=== PATIENT | male | born 1950 | race Caucasian/White ===

== ENCOUNTER 2021-01-19 09:41 | Outpatient (REF) | payer MEDICARE, SELFPAY ==
[2021-01-19 10:12] LABS: MANUAL DIFF FLAG NO
[2021-01-19 10:17] LABS: Basophils Percent Auto 0.2 % (0-2); Eosinophils Absolute Auto 0.1 X10*3/uL (0.0-0.4); Eosinophils Percent Auto 2.3 % (0-4); Hematocrit 42.9 % (42-52); Hemoglobin 13.8 g/dl (14.0-18.0); Imm Gran Abs Auto 0.01 X10*3/uL (0.00-0.03); Imm Gran Pct Auto 0.2 % (0.0-0.4); Lymphocytes Percent Auto 33.2 % (20-40); Mean Corpuscular HGB Conc 32.2 g/dl (31.0-36.0); Mean Corpuscular Hemoglobin 29.3 pg (27.0-33.0); Mean Corpuscular Volume 91.1 fL (80-98); Mean Platelet Volume 9.2 fL (9.4-12.4); Monocytes Absolute Auto 0.4 X10*3/uL (0.1-1.2); Monocytes Percent Auto 6.8 % (2-11); Neutrophils Absolute Auto 3.5 X10*3/uL (2.0-8.3); Neutrophils Percent Auto 57.3 % (45-73); Platelet Count 216 X10*3/uL (160-400); Red Blood Count 4.71 X10*6/uL (4.60-5.80); Red Cell Distribution Width 13.4 % (11.0-16.0)
[2021-01-19 10:39] LABS: Estimated Average Glucose 94 mg/dL; Hemoglobin A1c % 4.9 %
[2021-01-19 10:42] LABS: Alanine Aminotransferase 21 U/L (0-40); Albumin Level 4.3 g/dL (3.5-5.0); Alkaline Phosphatase 42 U/L (39-117); Anion Gap 9 (12-20); Aspartate Amino Transferase 15 U/L (5-37); Bilirubin Total 0.6 mg/dL (0.0-1.0); Blood Urea Nitrogen 15 mg/dL (9-16); Calcium 9.4 mg/dL (8.4-10.2); Carbon Dioxide 30 mmol/L (22-29); Chloride 107 mmol/L (96-108); Cholesterol 206 mg/dL; Estimated Glomerular Filt Rate > 60; Glucose Random 102 mg/dL (60-115); HDL Cholesterol 47 mg/dL; LDL Cholesterol Calculated 140 mg/dl; Potassium 4.3 mmol/L (3.3-5.1); Sodium 142 mmol/L (135-145); Total Protein 6.7 g/dL (6.5-8.0); Triglycerides 98 mg/dL
[2021-01-19 10:57] LABS: Free T4 (Free Thyroxine) 1.01 ng/dL (0.71-1.85); Prostate Specific Antigen Scr 3.42 ng/mL (<0.05-4.0)
[2021-01-19 11:18] LABS: Folate > 20.0 ng/mL (> or = 4.0); Vitamin B12 453 pg/mL (200-900)
== END 2021-01-19 09:42 | disposition home or self-care (01) ==
LOC: HO.10HDL 09:41
PROVIDERS: Visit Provider Internal Medicine
DX: Z12.5 Encounter for screening for malignant neoplasm of prostate (principal); R73.02 Impaired glucose tolerance (oral); K22.70 Barrett's esophagus without dysplasia; E78.00 Pure hypercholesterolemia, unspecified
CPT/HCPCS: 36415; 80053; 80061; 82607; 82746; 83036; 84153; 84439; 84443; 85025

== ENCOUNTER 2021-02-22 11:05 | Outpatient (REF) | payer MEDICARE, SELFPAY ==
[2021-02-22 13:58] LABS: MANUAL DIFF FLAG NO
[2021-02-22 14:03] LABS: Basophils Percent Auto 0.3 % (0-2); Eosinophils Absolute Auto 0.2 X10*3/uL (0.0-0.4); Eosinophils Percent Auto 2.4 % (0-4); Hemoglobin 14.2 g/dl (14.0-18.0); Imm Gran Abs Auto 0.03 X10*3/uL (0.00-0.03); Imm Gran Pct Auto 0.4 % (0.0-0.4); Lymphocytes Percent Auto 29.8 % (20-40); Mean Corpuscular HGB Conc 32.3 g/dl (31.0-36.0); Mean Corpuscular Hemoglobin 29.6 pg (27.0-33.0); Mean Corpuscular Volume 91.9 fL (80.0-98.0); Mean Platelet Volume 9.5 fL (9.4-12.4); Monocytes Absolute Auto 0.4 X10*3/uL (0.1-1.2); Monocytes Percent Auto 6.4 % (2-11); Neutrophils Percent Auto 60.7 % (45-73); Platelet Count 242 X10*3/uL (160-400); Red Blood Count 4.79 X10*6/uL (4.60-5.80); Red Cell Distribution Width 13.5 % (11.0-16.0); Retic HGB Equivalent 32.5 pg (30.0-35.0); Reticulocyte Percent 1.2 % (0.5-1.8); Reticulocytes Absolute 0.058 X10*6/uL (0.026-0.095); White Blood Count 6.7 X10*3/uL (4.8-10.8)
[2021-02-22 14:12] LABS: Estimated Average Glucose 111 mg/dL; Hemoglobin A1c % 5.5 %
[2021-02-22 14:14] LABS: Cholesterol 224 mg/dL; HDL Cholesterol 50 mg/dL; Iron 84 mcg/dL (45-160); LDL Cholesterol Calculated 146 mg/dl; Percent Iron Saturation 27 % (15-50); Total Iron Binding Capacity 309 mcg/dL (228-428); Triglycerides 141 mg/dL; Unsaturated Iron Binding 225 ug/dL
[2021-02-22 14:36] LABS: Ferritin 104 ng/mL (20-250)
[2021-02-22 14:50] LABS: Folate 19.7 ng/mL (> or = 4.0); Vitamin B12 514 pg/mL (200-900)
== END 2021-02-22 11:06 | disposition home or self-care (01) ==
LOC: HO.10HDL 11:05
PROVIDERS: Absent Provider Internal Medicine; Visit Provider Internal Medicine
DX: R73.02 Impaired glucose tolerance (oral) (principal); D64.9 Anemia, unspecified; E78.00 Pure hypercholesterolemia, unspecified
CPT/HCPCS: 36415; 80061; 82607; 82728; 82746; 83036; 83540; 85025; 85045

== ENCOUNTER 2023-10-28 08:58 | Outpatient (AMB) | payer MEDICARE, SELFPAY ==
[2023-10-28 09:00] VITALS: BP 130/82; PULSE 63; O2SAT 95; BMI 32.2
--- NOTE | 2023-10-28 09:00 | AM.OFFVISMDC ---
Intake Vital Signs 10/28/23 09:00 Height 5 ft 9 in Weight 218 lb BMI 32.2 BP 130/82 Blood Pressure Location Lt brachial Position Sitting Pulse 63 Pulse Source Pulse Oximeter Pulse Oximetry (%) 95 Oxygen Delivery Method Room Air Intake Visit Reasons: SWV Intake Note: Patient is here for an Annual Wellness Visit. Towel Distributor Required: No Allergies bees Allergy (Unknown, Uncoded 10/28/23 09:01) swelling Novocain Allergy (Unknown, Uncoded 10/28/23 09:01) hot flashes HPI SWV HPI Details 72-year-old obese male with Barretts esophagus impaired glucose tolerance hypercholesterolemia and BPH last seen in August 2022. Patient's colonoscopy is up-to-date December 2018 10 years patient has seen gastroenterology September 24 GERD good control with pantoprazole 40 mg once a day patient does have a family history of colon cancer and esophageal cancer patient will be scheduled for colon test in November. Patient is also being followed up by Urology with the elevated PSA prostate MRI advised. Blood work done in May 2023 normal creatinine 0.91 normal electrolytes normal blood sugar normal liver function test normal thyroid no anemia with normal platelet count normal urinalysis PSA is 9.03 patient is here for annual well visit. Dece,2022, had UTI, testicle had swelling 05/2023 US done, bladder, CT scan done--clear [facility]- went to [place] her 10.04- [facility] in [facility] patient has followed up with Dr. Wills and just recently had a biopsy 2 days ago and results are pending. Otherwise no other complaints of nausea vomiting fevers coughs colds no bowel problems. [facility] Medical History (Updated 10/28/23 @ 09:21 by Argelia Zapien MD) Anemia Obesity (BMI 30-39.9) Barretts esophagus Hypercholesterolemia BPH (benign prostatic hyperplasia) GERD (gastroesophageal reflux disease) Surgical History History of cholecystectomy History of surgery History of ear surgery History of shoulder surgery History of umbilical hernia repair Family History Father Esophageal cancer Mother Colon cancer Brother Esophageal cancer Social History (Updated 09/04/22 @ 14:14 by Argelia Zapien MD) Housing: House Alcohol intake: current Alcohol intake frequency: a few times a month Patient Tobacco Use Status: Former Tobacco user Years Smoked: 1989 stopped e-Cigarette/Vaping Use: Never Used Second Hand Smoke Exposure: No service: Yes ([employer]) Current occupational status: retired Cognitive needs: No Hearing needs: No Vision needs: Yes Questionnaire Medicare Wellness Checkup [age] What gender do you identify with?: male During the past 4 weeks, how much have you been bothered by emotional problems such as feeling anxious, depressed, irritable, sad or downhearted, and blue?: not at all During the past 4 weeks, has your physical & emotional health limited your social activities with family, friends, neighbors, or groups?: slightly During the past 4 weeks, how much bodily pain have you generally had?: very mild pain During the past 4 weeks, was someone available to help you if you needed & wanted help?: yes, as much as I wanted During the past 4 weeks, what was the hardest physical activity you could do for at least 2 minutes?: moderate Can you get to places out of walking distance without help? (For eg., can you travel alone on buses, taxis or drive your car?): Yes Can you go shopping for groceries or clothes without someone's help?: Yes Can you prepare your own meals?: Yes Can you do your housework without help?: Yes Because of any health problems, do you need the help of another person with your personal care needs such as eating, bathing, dressing or getting around the house?: No Can you handle your own money without help?: Yes During the past 4 weeks, how would you rate your health in general?: good During the past 4 weeks how have things been going for you?: good & bad parts about equal Are you having difficulties driving your car?: no Do you always fasten your seat belt when you are in a car?: yes, usually During past 4 weeks, have you been bothered by the following: never: Falling or dizzy when standing up, Sexual problems?, Trouble eating well?, Teeth or denture problems?, Problems using the telephone? and Tiredness or fatigue? Have you fallen 2 or more times in the past year?: No Are you afraid of falling?: No Are you a smoker?: no During the past 4 weeks, how many drinks of wine, beer, or other alcoholic beverages did you have?: 1 drink or less per week Do you exercise for about 20 minutes 3 or more times a week?: yes, some of the time Have you been given information to help with the following?: no: Hazards in your house that might hurt you? and no: Keeping track of your medications? How often do you have trouble taking medicines the way you have been told to take them?: I always take medicine as prescribed How confident are you that you can control & manage most of your health problems?: very confident What is your race?: White PHQ-9 Over the last 2 weeks, how often have you been bothered by any of the following problems? 1. Little interest or pleasure in doing things: not at all 2. Feeling down, depressed, or hopeless: not at all 3. Trouble falling or staying asleep, or sleeping too much: not at all 4. Feeling tired or having little energy: not at all 5. Poor appetite or overeating: not at all 6. Feeling bad about yourself - or that you are a failure or have let yourself or your family down: not at all 7. Trouble concentrating on things, such as reading the newspaper or watching television: not at all 8. Moving or speaking so slowly that other people could have noticed. Or the opposite - being so fidgety or restless that you have been moving around a lot more than usual: not at all 9. Thoughts that you would be better off or of hurting yourself in some way: not at all Total score: 0 Depression Screening Interpretation: Negative Depression Screening Done: Yes 33445 - PHQ-9 Billing: Yes Source: Developed by Drs. Nilson Coleman, Jaki Castano, Elmer Chang and colleagues, with an educational ross from [employer]. Review of Systems Const Denies poor appetite and Denies weakness Eyes Denies no additional complaints ENT Reports Normal hearing present, Denies dizziness, Denies nasal congestion, Denies tinnitus and Denies sore throat Card Denies chest pain, Denies syncope, Denies rapid heart rate and Denies dyspnea Resp Denies cough and Denies dyspnea GI Denies change in stool character, Reports constipation, Denies diarrhea, Denies nausea and Denies vomiting Denies dysuria and Denies urinary frequency Neuro Reports Normal hearing present, Denies confusion, Denies dizziness, Denies syncope and Denies weakness Psych Denies confusion Physical Exam Vital Signs: Last Vital Signs Pulse 63 10/28/23 09:00 BP 130/82 10/28/23 09:00 Pulse Ox 95 10/28/23 09:00 Oxygen Delivery Method Room Air 10/28/23 09:00 BMI result Body Mass Index 32.2 Const General: No confusion Orientation/consciousness: No confusion HEENT Head: Yes normocephalic Ears: external ears normal and TM's normal bilaterally Face and sinus: Yes normal facial exam Mouth: moist mucous membranes Throat: Yes tonsils normal Eyes Conjunctivae: conjunctivae normal Pupils: Equal, round and reactive pupils present and Pupil accommodation reflex normal Direct Ophthalmoscopy: normal light reflex Neck Neck: No lymphadenopathy Thyroid: Thyroid normal Chest Chest palpation & inspection: normal inspection of the chest Resp Effort & Inspection: normal respiratory effort and no audible wheezes Auscultation: clear to auscultation bilaterally, no crackles, no wheezes and lung sounds not diminished Cardio Rate: regular rate Rhythm: regular rhythm Peripheral pulses: radial pulses present and dorsalis pedis present GI Palpation (GI): no masses Auscultation: normal bowel sounds and normoactive bowel sounds Rectal Exam - Male: Yes deferred Skin General skin exam: no rashes or lesions noted Rashes: no rashes Neuro General: No confusion Cranial nerves: Yes Equal, round and reactive pupils present and Yes Normal hearing present Cognition (Neuro): normal cognition Gait exam (Neuro): Normal gait present Motor exam (neuro): 5/5 motor strength present throughout Deep tendon reflexes (DTR's): Right brachioradialis reflex intensity grade: 2+, Left brachioradialis reflex intensity grade: 2+, Right patellar reflex intensity grade: 2+ and Left patellar reflex intensity grade: 2+ Extrem General: No edema Assessment & Plan Assessment & Plan (1) Obesity (BMI 30-39.9): Code(s): E66.9 - Obesity, unspecified Plan: Diet and exercise (2) Hypercholesterolemia: Code(s): E78.00 - Pure hypercholesterolemia, unspecified Plan: Avoid fried foods, chicken skin, eggs, butter margarine, pastries and meat. Be it pork or beef they have a lot of cholesterol LDL goal of less than 130 and triglyceride of less than 150 on Zetia 10 mg once a day (3) BPH (benign prostatic hyperplasia): Code(s): N40.0 - Benign prostatic hyperplasia without lower urinary tract symptoms Qualifiers: Lower urinary tract symptom presence: symptoms present Lower urinary tract symptom detail: urinary frequency Qualified Code(s): N40.1 - Benign prostatic hyperplasia with lower urinary tract symptoms; R35.0 - Frequency of micturition Plan: On terazosin continue to follow-up with urology (4) Barretts esophagus: Code(s): K22.70 - Johnson's esophagus without dysplasia Qualifiers: Johnson's esophagus type: without dysplasia Qualified Code(s): K22.70 - Johnson's esophagus without dysplasia Plan: EGD to be done 11/[address] Bocanegra (5) Impaired glucose tolerance: Code(s): R73.02 - Impaired glucose tolerance (oral) Plan: Decrease the amount of carbohydrate intake, pasta, bread, rice and potatoes are all sugar and that is aside from all the sweet stuff, remember that fruits are good but they are Sweet also. 05/2023 for blood work is normal (6) PSA elevation: Code(s): R97.20 - Elevated prostate specific antigen [PSA] Plan: Patient has been seen by Urology and advised MRI but states has a CT scan done. has had biopsy done yesterday [facility] Dr. Wills Medications: Discontinued nirmatrelvir-ritonavir 300 mg (150 mg x 2)-100 mg (Paxlovid) Discontinued Reason: Change Referral Type take TWO 150 mg tablets of nirmatrelvir with ONE 100 mg tablet of ritonavir twice daily for 5 days PO 30 ea 0RF U07.1 - COVID-19 Quality Reporting (2019) Depression/Bipolar (159/160/161/177) PHQ-9: Total score: 0 Coding Level of Care Code Est Pt Level 4 (50492) Diagnoses Obesity (BMI 30-39.9) E66.9 Hypercholesterolemia E78.00 Benign prostatic hyperplasia with urinary frequency N40.1; R35.0 Lower urinary tract symptom presence: symptoms present Lower urinary tract symptom detail: urinary frequency Johnson's esophagus without dysplasia K22.70 Johnson's esophagus type: without dysplasia Impaired glucose tolerance R73.02 PSA elevation R97.20
== END 2023-10-28 10:01 | disposition home or self-care (01) ==
PROVIDERS: Visit Provider Internal Medicine
DX: E78.00 Pure hypercholesterolemia, unspecified (principal); E66.9 Obesity, unspecified; Z68.32 Body mass index [BMI] 32.0-32.9, adult; N40.1 Benign prostatic hyperplasia with lower urinary tract symptoms; R35.0 Frequency of micturition; K22.70 Barrett's esophagus without dysplasia; R73.02 Impaired glucose tolerance (oral); R97.20 Elevated prostate specific antigen [PSA]
CPT/HCPCS: 99214

== ENCOUNTER 2023-11-18 06:51 | Day surgery (SDC) | payer MEDICARE, SELFPAY ==
[2023-11-14 13:21] VITALS: BMI 32.7
--- NOTE | 2023-11-17 12:02 | HO.ANESPROP2 ---
Documented by User: Marjorie Young NP 11/17/23 12:03 HPI - Anesthesia Eval Consult details Narrative: 72yo M for Upper Endoscopy and Colonoscopy PMF Active Problems Active Problems: All Active Problems PSA elevation (Acute) COVID-19 virus infection (Acute) Medicare annual wellness visit, subsequent (Acute) Low back pain (Acute) Impaired glucose tolerance (Acute) Obesity (BMI 30-39.9) (Acute) Barretts esophagus (Acute) Hypercholesterolemia (Acute) BPH (benign prostatic hyperplasia) (Acute) GERD (gastroesophageal reflux disease) (Acute) Past Medical History Medical History Anemia Obesity (BMI 30-39.9) Barretts esophagus Hypercholesterolemia BPH (benign prostatic hyperplasia) GERD (gastroesophageal reflux disease) Family History Family History Father Esophageal cancer Mother Colon cancer Brother Esophageal cancer Surgical History Surgical History History of esophagogastroduodenoscopy (EGD) H/O colonoscopy History of cholecystectomy History of surgery History of ear surgery History of shoulder surgery History of umbilical hernia repair Social History Social History Household Members: Spouse Housing: House Alcohol intake: current Alcohol intake frequency: holidays/special occasions only Patient Tobacco Use Status: Former Tobacco user Years Smoked: 1989 stopped e-Cigarette/Vaping Use: Never Used Second Hand Smoke Exposure: No Use of substances other than those prescribed or required for medical reasons: No Are you DNR?: No Advance Directives: No Advance Directives Information Provided: Yes service: Yes ([employer]) Current occupational status: retired Cognitive needs: No Hearing needs: No Vision needs: Yes Meds Allergies Allergy/AdvReac Type Severity Reaction Status Date / Time bee pollen [bee stings] Allergy Intermediate Swelling Verified 11/14/23 13:17 procaine [From Novocain] Allergy Intermediate Flushing Verified 11/14/23 13:17 Home Medications ?Medication ?Instructions ?Recorded ?Confirmed ?Last Taken ?Type multivitamin (One-A-Day Essential 1 tab PO DAILY 03/30/20 11/14/23 Unknown History tablet) Exam Height,Weight and Vital Signs: Height 5 ft 8 in Weight 97.522 kg Assessment and Plan Assessment Anesthesia Assessment: Chart Reviewed Documented by User: Priscila Gong MD 11/18/23 07:39 PMFSH Past Medical History Medical History Anemia Obesity (BMI 30-39.9) Barretts esophagus Hypercholesterolemia BPH (benign prostatic hyperplasia) GERD (gastroesophageal reflux disease) Family History Family History Father Esophageal cancer Mother Colon cancer Brother Esophageal cancer Family history of problems with anesthesia: No Surgical History Surgical History History of esophagogastroduodenoscopy (EGD) H/O colonoscopy History of cholecystectomy History of surgery History of ear surgery History of shoulder surgery History of umbilical hernia repair History of Problems with Anesthesia: No Social History Social History Household Members: Spouse Housing: House Alcohol intake: current Alcohol intake frequency: holidays/special occasions only Patient Tobacco Use Status: Former Tobacco user Years Smoked: 1989 stopped e-Cigarette/Vaping Use: Never Used Second Hand Smoke Exposure: No Use of substances other than those prescribed or required for medical reasons: No Are you DNR?: No Advance Directives: No Advance Directives Information Provided: Yes service: Yes ([employer]) Current occupational status: retired Cognitive needs: No Hearing needs: No Vision needs: Yes Meds Allergies Allergy/AdvReac Type Severity Reaction Status Date / Time bee pollen [bee stings] Allergy Intermediate Swelling Verified 11/14/23 13:17 procaine [From Novocain] Allergy Intermediate Flushing Verified 11/14/23 13:17 Home Medications ?Medication ?Instructions ?Recorded ?Confirmed ?Last Taken ?Type multivitamin (One-A-Day Essential 1 tab PO DAILY 03/30/20 11/14/23 Unknown History tablet) Exam Airway Mallampati Class: II TM Dist: >3cm Neck ROM: Limited Heart: rrr Lungs: cta Assessment and Plan Assessment Anesthesia Assessment: Anesthesia Plan Discussed Final Anesthetic Review Family History of Problems with Anesthesia: No History of Problems with Anesthesia: No NPO: Yes ASA Class: III Final Preanesthetic Review: Meds/Allgs Chart Reviewed, Consent Obtained/Reviewed and Anes Risks/Benef Reviewed Patient Risk: Intermediate Procedure Risk: Low Anesthetic Plan Disposition: Standard PACU
[2023-11-18 07:10] VITALS: BP 115/81; PULSE 63; RESP 16; TEMP 36.5; O2SAT 95; BMI 31.8
[2023-11-18] MEDS: Lactated Ringers 1,000 ML 100 ML IVCONT (07:25)
--- NOTE | 2023-11-18 07:37 | MHC.SHP ---
Pre-Procedural Eval Section A - 24 Hr Update-Section A only Date of Service: 11/18/23 Section B - Complete if H&P > 30 days Chief Complaint: Johnson's esophagus without dysplasia,screening Details of Present Illness: see h& no changes Relevant Family History (Specify if Yes): No Relevant Social History: None Present Medications: see Short Stay Collaborative assessment Medical History: No relevant PMH History of Previous Operations: No relevant previous surgery Allergies: Allergies Allergy/AdvReac Type Severity Reaction Status Date / Time bee pollen [bee stings] Allergy Intermediate Swelling Verified 11/14/23 13:17 procaine [From Novocain] Allergy Intermediate Flushing Verified 11/14/23 13:17 Review of Systems Sugical H&P ROS: Negative: Constitution, Cardiovascular, Respiratory, Neurological, Psychiatric, Hem-Onc, Allergic/Immunologic, Gastrointestinal, Genitourinary, Musculoskeletal, Integumentary, Endocrine and Eyes/Ears/Nose/Throat Exam Surgical H&P Exam: Normal: HEENT, Normal: Heart, Normal: Lungs, Normal: Extremities, Normal: Abdomen, Normal: Skin and Normal: Neurological Plan I have reviewed the history and physical and performed a pertinent physical examination on my patient. No changes have occurred unless specified. Time Spent With Patient Time: Total time managing care of this patient today ____ minutes.
[2023-11-18 08:22] VITALS: BP 104/64; PULSE 63; RESP 16; TEMP 36.1; O2SAT 97
[2023-11-18 08:37] VITALS: BP 110/69; PULSE 60; RESP 16; TEMP 36.2; O2SAT 97
--- NOTE | 2023-11-18 09:15 | OP_ITS ---
DATE OF SERVICE: 11/18/2023 SURGEON: Peter Bocanegra MD INDICATIONS: 1. Johnson esophagus. 2. Colon cancer screening. PREOPERATIVE DIAGNOSIS: POSTOPERATIVE DIAGNOSIS: PROCEDURE PERFORMED: Upper endoscopy with biopsy, colonoscopy to the terminal ileum. ESTIMATED BLOOD LOSS: COMPLICATIONS: ANESTHESIA: Monitored anesthesia care. ASSISTANTS: SPECIMENS: DESCRIPTION OF PROCEDURE: A history and physical was performed. The risks and benefits of the procedure were explained to the patient and informed consent was obtained. The patient was placed in the left lateral decubitus position. The Olympus video gastroscope was introduced into the esophagus, stomach, and duodenum. Examination was performed and the scope was removed. He was repositioned for colonoscopy. A digital rectal exam was performed and was found to be normal. The Olympus pediatric video colonoscope was introduced into the rectum and advanced to the cecum. The cecum was identified by transillumination, palpation, and identification of ileocecal valve. Examination was performed and the scope was removed. He tolerated the procedure well and was returned to recovery area in stable condition. FINDINGS: Upper endoscopy, esophagus: There was an approximately 4 cm area of Johnson esophagus with no raised lesions or ulcerated areas. Biopsies were obtained. Stomach: The stomach was normal. Duodenum: The bulb and 2nd portion were normal. Colonoscopy: The terminal ileum was briefly glimpsed and appeared normal. The visualized colonic mucosa was within normal limits without evidence of masses or ulcers. No polyps were identified. Retroflexed examination showed small internal hemorrhoids. There was mild sigmoid diverticulosis. IMPRESSION: 1. Johnson esophagus. 2. Normal colonoscopy. RECOMMENDATIONS: 1. Follow up the biopsy results. 2. Repeat colonoscopy is recommended in 5 years because of family history of colon cancer. MD JOSELITO Pittman/SALINAS / [phone]
== END 2023-11-18 09:05 | disposition home or self-care (01) ==
PROVIDERS: PCP Internal Medicine; Visit Provider Internal Medicine Gastroenterology
PROC: (CPT 43239; principal; 2023-11-18 08:20)
DX: Z12.11 Encounter for screening for malignant neoplasm of colon (principal); Z80.0 Family history of malignant neoplasm of digestive organs; K57.30 Diverticulosis of large intestine without perforation or abscess without bleeding; K64.8 Other hemorrhoids; K22.70 Barrett's esophagus without dysplasia; K21.9 Gastro-esophageal reflux disease without esophagitis; I10 Essential (primary) hypertension; E78.5 Hyperlipidemia, unspecified; Z79.899 Other long term (current) drug therapy; Z98.890 Other specified postprocedural states; Z87.891 Personal history of nicotine dependence
CPT/HCPCS: 43239; G0105; 88305; J2704

== ENCOUNTER 2024-01-19 15:25 | Outpatient (REF) | payer MEDICARE, SELFPAY ==
--- NOTE | ~2024-01-19 | XR_ITS ---
EXAMINATION: XR LUMBOSACRAL SPINE CLINICAL INFORMATION: Lower back pain. COMPARISON: None available. TECHNIQUE: 3 views of the lumbosacral spine. FINDINGS: Normal vertebral body alignment. The lumbar lordosis is maintained. No acute fracture or subluxation. No loss of vertebral body height. Multilevel loss of intervertebral disc height with endplate osteophytes, most severe at L3-L4. Posterior spinous process fusion hardware at L3-L4 without evidence of complication. Multilevel bilateral facet arthropathy. No concerning lytic or blastic osseous lesion. XR/XR lumbar spine 2-3V IMPRESSION: 1. Multilevel degenerative disc disease, most severe at L3-L4. 2. Posterior spinous process fusion hardware at L3-L4 without evidence of complication. Electronically signed by: Pedro Glover MD 02/25/2024 10:07 AM [facility]
== END 2024-01-19 15:26 | disposition home or self-care (01) ==
LOC: HO.XRAY 15:25
PROVIDERS: PCP Internal Medicine; Visit Provider Internal Medicine
DX: M54.50 Low back pain, unspecified (principal)
CPT/HCPCS: 72100

== ENCOUNTER 2024-09-30 15:26 | Outpatient (AMB) | payer MEDICARE, SELFPAY ==
--- NOTE | 2024-09-30 15:43 | A.OFFPC_ITS ---
Vital Signs 09/30/24 15:45 Height 5 ft 9 in Weight 216 lb BMI 31.9 BP 116/74 Blood Pressure Location Lt brachial Position Sitting Pulse 67 Pulse Source Pulse Oximeter Temp 97.3 F Temp Source Temporal Artery Scan Pulse Oximetry (%) 97 Oxygen Delivery Method Room Air Intake Visit Reasons: [facility] 10/12& 10/27 Intake Note: Patient is here for a Pre-op for Cataract surgery scheduled with Dr. Nish MD on 10/12 and 10/27 fax:[phone]. Executive Sales Manager Required: No Accompanied by: Self / Same As Patient Allergies bee pollen (bee stings) Allergy (Intermediate, Verified 09/30/24 16:08) Swelling procaine (From Novocain) Allergy (Intermediate, Verified 09/30/24 16:08) Flushing Medication List - Last Reconciled 09/30/24 by Abigail Ram PA-C ezetimibe (Zetia) 10 mg PO DAILY 90 days ketorolac 0.5% drps ophthalmic (eye) multivitamin (One-A-Day Essential tablet) 1 tab PO DAILY pantoprazole 40 mg PO DAILY 90 days terazosin 2 mg PO DAILY Tobacco use date assessed: 09/30/24 Fall risk assessment: No Falls in past year Last assessed Fall Risk: 09/30/24 Dental Screening Dental Screen Date: 09/30/24 Did you have a dental visit in the last 12 months?: Yes Did you have a dental problem in the last 6 months where you did not have access to dental care?: No Was dental information given to patient?: Patient has dentist [facility] 10/12& 10/27 HPI Details 73-year-old male with past medical histo ry of GERD, BPH, hypercholesterolemia, obesity, impaired glucose tolerance last seen 10/2023 coming in for preoperative visit.?Patient has been scheduled to have cataract [facility] 10/[facility]24 and 10/27/2024 at [facility]. No history of CVA, DC, DM or CHF. Patient has had surgery and anesthesia in the past without complication. He is not on any blood thinners, DMARDs or NSAIDs. IGT: Ordered for repeat A1c [facility] Medical History Anemia Obesity (BMI 30-39.9) Barretts esophagus Hypercholesterolemia BPH (benign prostatic hyperplasia) GERD (gastroesophageal reflux disease) Surgical History History of esophagogastroduodenoscopy (EGD) H/O colonoscopy History of cholecystectomy History of surgery History of ear surgery History of shoulder surgery History of umbilical hernia repair Family History Father Esophageal cancer Mother Colon cancer Brother Esophageal cancer Social History Household Members: Spouse Housing: House Alcohol intake: current Alcohol intake frequency: holidays/special occasions only Patient Tobacco Use Status: Former Tobacco user Years Smoked: 1989 stopped e-Cigarette/Vaping Use: Never Used Second Hand Smoke Exposure: No service: Yes ([employer]) Current occupational status: retired Cognitive needs: No Hearing needs: No Vision needs: Yes Questionnaire Thrive Questionnaire Date Thrive assessed: 02/13/22 RADHA-7 AMB Questionnaire RADHA-7 Date RADHA - 7 assessed: 09/04/22 Source: Developed by Drs. Nilson Coleman, Jaki Castano, Elmer Chang and colleagues, with an educational ross from [employer]. Review of Systems Const Denies body aches, Denies chills, Denies fever(s), Denies headache(s) and Denies poor appetite Eyes Reports no additional complaints ENT Denies dysphagia, Denies dizziness, Denies headache(s) and Denies odynophagia Card Denies chest pain, Denies syncope, Denies edema, Denies irregular heart rhythm, Denies lightheadedness and Denies dyspnea Resp Denies cough and Denies dyspnea GI Denies abdominal pain, Denies constipation, Denies dysphagia, Denies diarrhea, Denies nausea, Denies odynophagia and Denies vomiting Reports no additional complaints Musc Reports no additional complaints and Denies abnormal gait Skin/Breast Reports system reviewed and no additional complaints, except as documented Neuro Denies abnormal gait, Denies dizziness, Denies syncope and Denies headache(s) Psych Reports no additional complaints Physical exam (Primary Care) Vital Signs: Last Vital Signs Temp 97.3 F 09/30/24 15:45 Pulse 67 09/30/24 15:45 BP 116/74 09/30/24 15:45 Pulse Ox 97 09/30/24 15:45 Oxygen Delivery Method Room Air 09/30/24 15:45 BMI result Body Mass Index 31.9 Tobacco/Smoking Status: Tobacco use Status Tobacco use date assessed 09/30/24 09/30/24 15:54 Patient Tobacco Use Status Former Tobacco user 09/30/24 15:44 e-Cigarette/Vaping Use Never Used 09/30/24 15:44 Thrive Assessment: Date of Thrive Assessment Date Thrive assessed 02/13/22 09/30/24 15:44 Const General: cooperative, healthy appearing, comfortable and no acute distress Orientation/consciousness: patient oriented x3 HENMT Head: Yes normocephalic Ears: hearing grossly normal bilaterally General nose exam: Normal external nose present Eyes General: appearance normal, both eyes and all related structures Conjunctivae: conjunctivae normal Neck Neck: Yes full ROM and Yes no lymphadenopathy Resp Effort & Inspection: normal respiratory effort Auscultation: clear to auscultation bilaterally, no crackles, no rales, no rhonchi and no wheezes Cardio Rate: regular rate Rhythm: regular rhythm Skin General skin exam: no rashes or lesions noted Neuro General: patient oriented x3 Gait exam (Neuro): Normal gait present Extrem General: Yes normal to inspection, Yes full ROM and No edema Psych Affect: normal affect Attitude: cooperative Insight: Good insight present (Psych) Judgement: Good judgement present (Psych) Coding Level of Care Code Est Pt Level 3 (42124) Diagnoses Pre-op evaluation Z01.818 Assessment & Plan Assessment & Plan (1) Pre-op evaluation: Code(s): Z01.818 - Encounter for other preprocedural examination Category: Medical Plan: Regarding preop clearance, the patient is at moderate risk for proposed surgery due to age however patient lacks significant comorbidities. Reviewed with the patient that no surgery is completely free of risk and that this examination is to assist the surgeon in reviewing informed consent. I did order for additional blood work to include kidney and liver function and A1c. Clearance will be provided once blood work can be completed. Plan This note was constructed using voice recognition software. While every effort has been made to ensure accuracy and welding machine feeder, still areas may have been included sometimes these areas may affect the content or meeting of the given symptoms. Total time spent caring for the patient today was 20 minutes. This includes time spent before the visit reviewing the chart, time spent during the visit, and time spent after the visit and documentation. Orders: Orders Complete Blood Count Auto Diff Today Z00.00 - Encounter for general adult medical examination without abnormal findings, Z01.818 - Encounter for other preprocedural examination Hemoglobin A1c Today Z01.818 - Encounter for other preprocedural examination Comprehensive Met. Panel Today Z00.00 - Encounter for general adult medical examination without abnormal findings, Z01.818 - Encounter for other preprocedural examination
[2024-09-30 15:45] VITALS: BP 116/74; PULSE 67; TEMP 36.3; O2SAT 97; BMI 31.9
--- OUTSIDE RECORDS SUMMARY | 2024-09-30 16:38 | XMS_ITS | Clinical Summary ---
Author Organization [facility] Address [address] [place] [address] Care Team Providers Care Systems Programmer Analyst Name Role Phone Tadeo VARNER MD, Jovani Barrett Primary Care Provider [phone] Allergies Active Allergy Reactions Criticality Noted Date Comments Procaine Anxiety Low 04/18/2017 Statins Other (See Comments) 05/02/2017 Joint pain Medications Medication Sig Dispensed Refills Start Date End Date Status terazosin (HYTRIN) 2 MG capsule 0 04/22/2017 Active pantoprazole (PROTONIX) 40 MG tablet 0 04/22/2017 Active ezetimibe (ZETIA) tablet 10 mg 0 04/22/2017 Active oxyCODONE-acetamino phen (PERCOCET) 5-325 MG per tablet Take 2 tablets by mouth every 4 (four) hours as needed for pain. 50 tablet 0 05/02/2017 Active Additional Information Patient not taking.Reason: Other, Reported on 10/03/2017 Social History Tobacco Use Types Packs/Day Years Used Date Smoking Tobacco: Former Cigarettes Q uit: 04/29/1982 Smokeless Tobacco: Never Alcohol Use Standard Drinks/Week Comments Yes 2 (1 standard drink = 0.6 oz pur e alcohol) Sex and Gender Information Value Date Recorded Sex Assigned at Not on file Gender Identity Not on file Sexual Orientation Not on file Last Filed Vital Signs Vital Sign Reading Time Taken Comments Blood Pressure 118/68 10/03/2017 10:29 AM EDT Pulse 69 05/02/2017 5:22 PM EST Temperature 36.3 C (97.4 F) 05/02/2017 4:45 PM EST Respiratory Rate 16 05/02/2017 5:22 PM EST Oxygen Saturation 94% 05/02/2017 5:22 PM EST Inhaled Oxygen Concentration - - Weight 109.3 kg (241 lb) 10/03/2017 10:29 AM EDT Height 175.3 cm (5' 9 ) 05/16/2017 3:46 PM EST Body Mass Index 35.59 05/16/2017 3:46 PM EST Plan of Treatment Health Maintenance Due Date Last Done Comments Hepatitis C Screening 1950 COVID-19 Vaccine (#1) 06/22/1951 Depression Screening 1962 Preventative Health Evaluation 1968 DTap / Tdap / Td (1 - Tdap) 1969 Colon Cancer Screening (Colonoscopy) 12/23/1995 Shingrix-Zoster Vaccine (1 of 2) 2000 Fall Risk Assessment 12/23/2015 Pneumococcal Vaccine (1 of 1 - PCV) 12/23/2015 Influenza Vaccine (Season Ended) 2024 RSV Adult > 60+ Yrs or Pregn ant (1 - 1-dose 75+ series) 2025 Hepatitis B Vaccines Aged Out No long er eligible based on patient's age to complete this topic RSV Ped < 20 months Aged Out No longe r eligible based on patient's age to complete this topic Medical Devices Implanted Type Area Guide Dog Trainer Device Identifier Shelf Expiration Date Model / Serial / Lot Sponge Surgiflo 8ml Hemostatic Matrix Absorbable Latex Free - [id number] - [id number] Implanted:Qty: 1 on 05/02/2017 by Yosef Ruelas MD at [facility] [place] [facility] [place] Hemostatic Agent Posterior : Spine Lumbar [employer] 12/12/2018 [id number] / / [id number] Sponge Surgifoam Thk7mm 6x2cm Hemostatic Agent Gelatin - [id number] - [id number] Implanted:Qty: 1 on 05/02/2017 by Yosef Ruelas MD at [facility] [place] [facility] Hemostatic Agent Posterior : Spine Lumbar [employer] 03/28/20191971 / / [id number] Coflex Interlaminar Implant Size 8 - [id number] - [id number] Implanted:Qty: 1 on 05/02/2017 by Yosef Ruelas MD at [facility] [place] [facility] Posterior : Spine Lumbar [employer] 07/12/2020 [id number] / / [id number] Care Teams Systems Programmer Analyst Relationship Specialty Start Date End Date Jovani Piedra II, MD [address] [place] [address] PCP - General Internal Medicine 04/03/17
== END 2024-09-30 16:26 | disposition home or self-care (01) ==
LOC: HO.HMCH 15:26
PROVIDERS: PCP Internal Medicine
DX: Z01.818 Encounter for other preprocedural examination (principal)

== ENCOUNTER → 2024-09-30 15:26 | Outpatient (BNVA) | payer MEDICARE, SELFPAY | PROVIDERS: PCP Internal Medicine | DX: Z01.818 Encounter for other preprocedural examination (principal); H26.9 Unspecified cataract | CPT/HCPCS: 99212 ==

== ENCOUNTER 2024-10-05 08:56 | Outpatient (REF) | payer MEDICARE, SELFPAY ==
--- OUTSIDE RECORDS SUMMARY | 2024-10-05 09:24 | XMS_ITS | Clinical Summary ---
Author Organization [facility] Address [address] [place] [address] Care Team Providers Care Casing Flusher Name Role Phone Tadeo VARNER MD, Jovani Barrett Primary Care Provider [phone]- [phone] Allergies Active Allergy Reactions Criticality Noted Date [...] this topic Medical Devices Implanted Type Area Environmental Science Program Director Device Identifier Shelf Expiration Date Model / Serial / Lot Sponge Surgiflo 8ml Hemostatic Matrix Absorbable Latex Free - [id number] - [id number] Implanted:Qty: 1 on 05/02/2017 by Yosef Ruelas MD at [facility] [place] [facility] Hemostatic Agent Posterior : Spine Lumbar [employer] 12/12/2018 [id number] / / [id number] Sponge Surgifoam Thk7mm 6x2cm Hemostatic Agent Gelatin - [id number] - [id number] Implanted:Qty: 1 on 05/02/2017 by Yosef Ruelas MD at [facility] [place] and [facility] Hemostatic Agent Posterior : Spine Lumbar [employer] - [employer] 03/28/20191971 / / [id number] Coflex Interlaminar Implant Size 8 - [id number] - [id number] Implanted:Qty: 1 on 05/02/2017 by Yosef Ruelas MD at [facility] [place] and [facility] Posterior : Spine Lumbar [employer] 07/12/2020 [id number] / / [id number] Care Teams Casing Flusher Relationship Specialty Start Date End Date Jovani Piedra II, MD [address] [place] [address] PCP - General Internal Medicine 04/03/17
[2024-10-05 09:44] LABS: MANUAL DIFF FLAG NO
[2024-10-05 09:47] LABS: Basophils Percent Auto 0.3 % (0-2); Eosinophils Absolute Auto 0.2 X10*3/uL (0.0-0.4); Eosinophils Percent Auto 2.8 % (0-4); Hematocrit 43.1 % (42.0-52.0); Hemoglobin 14.3 g/dl (14.0-18.0); Imm Gran Abs Auto 0.02 X10*3/uL (0.00-0.03); Imm Gran Pct Auto 0.3 % (0.0-0.4); Lymphocytes Absolute Auto 2.5 X10*3/uL (1.2-4.9); Lymphocytes Percent Auto 34.2 % (20-40); Mean Corpuscular HGB Conc 33.2 g/dl (31.0-36.0); Mean Corpuscular Hemoglobin 29.9 pg (27.0-33.0); Mean Platelet Volume 8.7 fL (9.4-12.4); Monocytes Absolute Auto 0.5 X10*3/uL (0.1-1.2); Monocytes Percent Auto 6.6 % (2-11); Neutrophils Percent Auto 55.8 % (45-73); Platelet Count 224 X10*3/uL (160-400); Red Blood Count 4.79 X10*6/uL (4.60-5.80); Red Cell Distribution Width 13.6 % (11.0-16.0); White Blood Count 7.2 X10*3/uL (4.8-10.8)
[2024-10-05 09:55] LABS: Estimated Average Glucose 117 mg/dL; Hemoglobin A1c % 5.7 % (<6.0)
[2024-10-05 09:56] LABS: Alanine Aminotransferase 17 U/L (0-40); Albumin Level 4.4 g/dL (3.5-5.0); Alkaline Phosphatase 41 U/L (39-117); Anion Gap 11 (12-20); Aspartate Amino Transferase 18 U/L (5-37); Bilirubin Total 0.6 mg/dL (0.0-1.0); Blood Urea Nitrogen 15 mg/dL (9-16); Calcium 9.4 mg/dL (8.4-10.2); Carbon Dioxide 27 mmol/L (22-29); Chloride 108 mmol/L (96-108); Estimated Glomerular Filt Rate > 60; Glucose Random 101 mg/dL (60-115); Potassium 4.3 mmol/L (3.3-5.1); Sodium 142 mmol/L (135-145); Total Protein 7.1 g/dL (6.5-8.0)
== END 2024-10-05 08:57 | disposition home or self-care (01) ==
LOC: HO.10HDL 08:56
DX: Z01.818 Encounter for other preprocedural examination (principal); Z00.00 Encounter for general adult medical examination without abnormal findings
CPT/HCPCS: 36415; 80053; 83036; 85025

== ENCOUNTER 2024-12-20 09:07 | Outpatient (REF) | payer MEDICARE, SELFPAY ==
--- OUTSIDE RECORDS SUMMARY | 2023-11-18 04:20 | XMS_ITS ---
Author Organization [facility] Address [address] [place] [address] [address] [place] [address] Care Team Providers Care Curbing Stonecutter Name Role Phone Argelia Zapien MD Primary Care Provider Peter Croft Jr REASON FOR VISIT faith's,screening Problems Problem Type SNOMED Code ICD Code Onset Dates Problem Status W/U Status Risk Notes Problem Diverticular disease of colon (275920724) Colon, diverticulosis (K57.30) Active confirmed Encounters Encounter Location Date Provider Diagnosis [facility] Outpatient [address] [place] [address] [id number] 11/18/2023 Peter Bocanegra Jr Colon cancer screening Z12.11 and Faith''s esophagus without dysplasia K22.70 Assessments Encounter Date Diagnosis (ICD Code) Assessment Notes Treatment Notes Treatment Clinical Notes Section Notes 11/18/2023 Colon cancer screening (ICD-10 - Z12.11) 11/18/2023 Faith''s esophagus without dysplasia (ICD-10 - K22.70) Plan Of Treatment Next Appt Details Provider Name:Peter leiva Jr, 11/30/2025 09:00:00 AM, [address] [facility], [address], [place], [address], Progress Notes * VENUS FRANKLIN GDOB:1950 (73 yo M)Acc No.[id number]:11/18/2023 EGD and COL/MAC Patient: VENUS LLANOS Provider: Tasha Bocanegra MD :1950 A ge:72 Y S ex:Male Date:11/18/2023 Address: [address] [id number] Pcp:Argelia Zapien MD Subjective: * Chief Complaints: * 1 . Faith's,screening. * Medical History: Objective: * Vitals: Assessment: * Assessment: 1. C olon cancer screening - Z12.11 (Primary) 2 . B arrett''s esophagus without dysplasia - K22.70 Plan: * Treatment: * Procedure Codes: G 0105 COLOREC CANCR SCR; COLNSCPY HI RISK, 0529F INTRVL 3+YRS PTS CLNSCP DOCD, 0528F RCMND FLW-UP 10 YRS DOCD, Modifiers: 1P , 27271 UPPER GI ENDOSCOPY, BIOPSY * * The named appointment provid er may or may not be the originator of this progress note, and it is not deemed complete until electronically signed by the appointment provider. Sign off status: Pending * Provider: Tasha Bocanegra MD Date: 0 11/18/2023 Generated for Karol strange/Cheryl/Osminsmitting on: 0 12/20/2024 10:16 AM EDT
--- OUTSIDE RECORDS SUMMARY | 2024-12-20 10:16 | XMS_ITS | Clinical Summary ---
Author Organization [facility] Address [address] [place], [place] [address] Phone Care Team Providers Care Machine Cutter Name Role Phone Argelia Zapien MD Primary Care Provider [phone] Allergies Active Allergy Reactions Criticality Noted Date Comments Bee Pollen 12/25/2021 Procaine Anxiety Low 04/18/2017 Hqgzphw-Dmy-Xff Reductase Inhibitors 05/02/2017 Other reaction(s): Other (See Comments) Joint pain Medications pantoprazole (PROTONIX) 40 MG tablet 8 Active terazosin (HYTRIN) 2 MG capsule 8 Active ezetimibe (ZETIA) 10 mg tablet 8 Active aspirin 81 MG EC tablet Take 81 mg by mouth daily. Active multivitamins-m inerals-folic dylx-oysajzt-ck tein (COMPLETE SENIOR) 0.4 mg-300 mcg- 250 mcg Tab Take 1 tablet by mouth daily. Active lidocaine 2 % Soln Use as directed 15 mL in the mouth or throat every 3 (three) hours as needed. Topically or swish and spit 480 mL Active Additional Information Patient not taking.Reported on 12/25/2021 Active Problems Problem Noted Date Diagnosed Date Obesity 12/05/2022 12/05/2022 Chronic low back pain 12/05/2022 12/05/2022 Hypercholesterolemia 12/05/2022 12/05/2022 Hearing loss 12/05/2022 12/05/2022 Benign hypertension 12/05/2022 12/05/2022 Johnson's esophagus 12/05/2022 12/05/2022 Immunizations Immunization Administration Dates Next Due COVID-19 (Pre-02/03) Moderna Vaccine, mRNA, PF 03/17/2021,06/26/2020,05/24/2020 INFLUENZA, SPLIT VIRUS, TRIV ALENT W/ PRESERVATIVE IM 01/08/2017 Influenza High-Dose Trivalen t Preservative Free IM 01/28/2018 Influenza Quadrivalent Preservative Free IM 01/12 Influenza, Unspecified Formulation 01/13/2016, Pneumococcal conjugate PCV13 01/23/2016 Pneumococcal polysaccharide PPSV23 12/10/2019 Td (adult) 5 Lf Tetanus Toxo id, PF, Adsorbed 07/30/2017 Tdap 12/05/2022 Zoster live 08/04/2013 Social History Tobacco Use Types Packs/Day Years Used Date Smoking Tobacco: Former Smokeless Tobacco: Never Tobacco Cessation:Counseling Given: Not Answered Education Answer Date Recorded Are you interested in more education? Not on jeni e 08/09/2022 Are you concerned about learning? Not on file 08/09/2022 No 08/09/2022 No 08/09/2022 Digital Access Answer Date Recorded No 09/07/2022 No 09/07/2022 Reliable internet access at home? Not on file 09/07/2022 Device with a working camera? Not on file Sex and Gender Information Value Date Recorded Sex Assigned at Male 12/25/2021 1:33 PM EDT Legal Sex Male 12:39 PM EDT Gender Identity Male 12/25/2021 1:33 PM EDT Sexual Orientation Choose not to disclose 2021 1:33 PM EDT Last Filed Vital Signs Vital Sign Reading Time Taken Comments Blood Pressure 124/77 12/05/2022 6:30 PM EDT Pulse 52 12/05/2022 6:30 PM EDT Temperature 36.5 C (97.7 F) 12/05/2022 6:30 PM EDT Respiratory Rate 16 12/05/2022 6:30 PM EDT Oxygen Saturation 98% 12/05/2022 6:30 PM EDT Inhaled Oxygen Concentration - - Weight 98.9 kg (218 lb) 12/05/2022 6:30 PM EDT p er pt Height 175.3 cm (5' 9 ) 12/25/2021 1:31 PM EDT Body Mass Index 32.19 12/25/2021 1:31 PM EDT Plan of Treatment Health Maintenance Due Date Last Done Comments LIPID PANEL 1950 DEPRESSION SCREENING 1962 SMOKING Hx and SMOKELESS TOBACCO SCREENING 12/23/1963 HEPATITIS C SCREENING 1968 COLOGUARD 12/23/1995 COLONOSCOPY 12/23/1995 COLORECTAL CANCER SCREENING 12/23/1995 FIT TEST 12/23/1995 FOBT 12/23/1995 SIGMOIDOSCOPY 12/23/1995 VIRTUAL COLONOSCOPY 12/23/1995 ZOSTER VACCINES (2 of 3) 09/29/2013 08/04/2013 ABDOMINAL AORTIC ANEURYSM (AAA) SCREENING 12/23/2015 BLOOD PRESSURE 06/07/2023 12/05/2022 INFLUENZA VACCINE (#1) 2024 , 01/28/2018, 01/08/2017, Additional history exists COVID-19 VACCINE ( season) 2024 03/17/2021, 06/26/2020, 05/24/2020 RSV VACCINE (1 - 1-dose 75+ series) 2025 Adult Td,Tdap Booster 12/05/2032 12/05/2022, 018 PNEUMOCOCCAL VACCINES (50+ years) Completed 12/10/2019, 01/23/2016 HEPATITIS A VACCINES Aged Out No long er eligible based on patient's age to complete this topic HIB VACCINES Aged Out No longer eligi ble based on patient's age to complete this topic MENINGOCOCCAL VACCINES (ACWY) Aged Out No longer eligible based on patient's age to complete this topic MENINGOCOCCAL VACCINES (B) Aged Out N o longer eligible based on patient's age to complete this topic Medical Devices Not on file Insurance MEDICARE PART A & B [employer] MEDEX SUPPLEMENT [facility] MEDICARE PART A & B [employer] [place] [place] [address] [place] [address] MEDICARE PART A & B [facility] MEDEX SUPPLEMENT [facility] MEDICARE PART A & [place] [id number] [employer] MEDEX SUPPLEMENT [facility] MEDICARE PART A & B [employer] [place]EX [place] [address] [place] [address] MEDICARE PART A & B [employer] MEDEX SUPPLEMENT Member Subscriber Plan / Payer (Ef fective 2015-Present) Name:Colten Bowman Relation to Subscriber:Self Name:Colten Bowman Payer ID:[id number] (NAIC) Type:Indemnity Address: [address] MEDICARE PART A & B [employer] CROSS MEDEX SUPPLEMENT Member Subscriber Plan / Payer (Ef fective 2015-Present) Name:MaryColten stoll Relation to Subscriber:Self Name:Colten Bowman Payer ID:[id number] (NAIC) Type:Indemnity Address: [address] [place] [id number] [employer] [place] MEDEX SUPPLEMENT [facility] MEDICARE PART A & B [employer] CROSS MEDEX SUPPLEMENT [facility] Care Teams Machine Cutter Relationship Specialty Start Date End Date Argelia Zapien MD [address] [place] [address] PCP - General Internal Medicine 09/15/18 Additional Source Comments The information contained in this document represents components of the legal health record. It is not the complete legal health record.[facility]
--- OUTSIDE RECORDS SUMMARY | 2024-12-20 10:16 | XMS_ITS | Patient Health Record ---
Author Organization [facility] Address [address] [place] [address] Care Team Providers Care Casino Change Attendant Name Role Phone Argelia Zapien MD Primary Care Provider Peter Croft Jr Unavailable Allergies Allergen (clinical drug ingredient) Drug/Non Drug Allergy documented on EMR Reaction Allergy Type Onset Date Status nov Unknown Drug Allergy Active bee stings (uncoded) Unknown Allergy Active Reason For Referral No Information Medications Medication SIG (Take, Route, Frequency, Duration) Notes Start Date End Date Status Zetia 10 MG 1 tablet Orally Once a day Active Pantoprazole Sodium 40 MG 1 tablet Orall y Once a day Active Multi Vitamin/Minerals - as directed Ora lly once a day Active MiraLax (colon prep) 17 GM/SCOOP mixed with Gatorade or Crystal Light Orally begin at 5:00 p.m. the day before the procedure for 1 day 09/25/2023 Not-Taking Terazosin HCl 2 MG 1 capsule Orally Onc e a day for 30 day(s) Active Immunizations Vaccine Route Administration Date Status Comme nts Influenza Unknown 01/20/2018 Administered Social History Tobacco Use: Social History Observation Description Date Details (start date - stop date) Former Smoker 12/25/1967 - 11/29/1980 Tobacco Control (Standard) Question Answer Notes Tobacco use: Former smoker When did you start smoking? 12/25/1967 When did you stop smoking? 11/29/1980 How long has it been since you last smoked? Grea ter than 10 years AUDIT-C (Standard) Question Answer Notes Did you have a drink contain ing alcohol in the past year? Yes How often did you have a dri nk containing alcohol in the past year? 2 to 3 times a week (3 points) How many drinks did you have on a typical day when you were drinking in the past year? 1 or 2 drinks (0 point) How often did you have six o r more drinks on one occasion in the past year? Never (0 point) Points 3 Interpretation Negative Section Notes: no tobacco since 1979 no tobacco since 1979 Problems Problem Type SNOMED Code ICD Code Onset Dates Problem Status W/U Status Risk Notes Problem 077387701 Colon cancer screening (Z12.11) Active confirmed Problem 581333134 Johnson''s esophagus without dysplasia (K22.70) Active confirmed Problem Diverticular disease of colon (025686721) Colon, diverticulosis (K57.30) Active confirmed Vital Signs Heart Rate 60 /min 11/24/2024 Blood pressure diastolic 01 mm Hg 11/24/2024 Height 68 in 11/24/2024 Blood pressure systolic 01 mm Hg 11/24/2024 Weight 222.2 lbs 11/24/2024 BMI 33.78 kg/m2 11/24/2024 Encounters Encounter Location Date Provider Diagnosis [facility] [address] [place] [address] 11/24/2024 Peter Bocanegra Jr Colon cancer screening Z12.11 and Johnson''s esophagus without dysplasia K22.70 Assessments Encounter Date Diagnosis (ICD Code) Assessment Notes Treatment Notes Treatment Clinical Notes Section Notes 11/24/2024 Colon cancer screening (ICD-10 - Z12.11) Currently, he is doing well. We discussed Johnson's esophagus today. We discussed gastroesophageal reflux disease. We discussed diet, lifestyle modifications, and weight management regarding the treatment of reflux. He will continue these measures. He will continue pantoprazole. He is up-to-date on endoscopy and colorectal cancer screening. We recommended repeat endoscopy in 3 to 5 years, based on his family history of esophageal cancer. He we will continue diet and lifestyle modifications. Today's visit was 30 minutes. 11/24/2024 Johnson''s esophagus without dysplasia (ICD-10 - K22.70) Currently, he is doing well. We discussed Johnson's esophagus today. We discussed gastroesophageal reflux disease. We discussed diet, lifestyle modifications, and weight management regarding the treatment of reflux. He will continue these measures. He will continue pantoprazole. He is up-to-date on endoscopy and colorectal cancer screening. We recommended repeat endoscopy in 3 to 5 years, based on his family history of esophageal cancer. He we will continue diet and lifestyle modifications. Today's visit was 30 minutes. Plan Of Treatment Future Test Test Name Order Date UPPER GI ENDOSCOPY 02/10/2013 COLONOSCOPY 02/10/2013 UPPER GI ENDOSCOPY 09/09/2018 COLONOSCOPY 09/09/2018 UPPER GI ENDOSCOPY 09/25/2023 COLONOSCOPY 09/25/2023 Next Appt Details Provider Name:Peterthania leiva , 11/30/2025 09:00:00 AM, [address] [place] [address], [address], [place], [address], Insurance Providers Payer Name Payer Address Payer Phone Subscriber Number Group Number Insured Name Patient Relationship to Insured Coverage Start Date Coverage End Date MEDICARE OF [place] [address] [place] [address] [id number] VENUS FRANKLIN Self - patient is the insured MEDEX ATTN CLAIMS [address] [place] [address] [id number] VENUS FRANKLIN Self - patient is the insured Medical (General) History Medical History History ICD Code Hypertension Hyperlipidemia Johnson's esophagus, EGD 12/31, no dyspla jorge, five-year followup Colonoscopy normal 12/31, five-year follo wup UTI Hearing loss Surgical History Surgery Date(Month/Year) Back surgery 2017 cholecystectomy 2020 right shoulder surgery umbilical hernia repair 2010 ear surgery back surgery x2
--- OUTSIDE RECORDS SUMMARY | 2024-12-20 10:16 | XMS_ITS | Clinical Summary ---
Author Organization [facility] Address [address] [place] [address] Care Team Providers Care Selenium Plant Operator Name Role Phone Tadeo VARNER MD, Jovani Barrett Primary Care Provider [phone] Allergies Active Allergy Reactions Criticality Noted Date [...] of 1 - PCV) 12/23/2015 Influenza Vaccine (#1) 2024 RSV Adult > 60+ Yrs or Pregn ant (1 - 1-dose 75+ series) 2025 Hepatitis B Vaccines Aged Out No long er eligible based on patient's age to complete this topic RSV Ped < 20 months Aged Out No longe r eligible based on patient's age to complete this topic Medical Devices Implanted Type Area Belting Cutter Device Identifier Shelf Expiration Date Model / Serial / Lot Sponge Surgiflo 8ml Hemostatic Matrix Absorbable Latex Free - [id number] - [id number] Implanted:Qty: 1 on 05/02/2017 by Yosef Ruelas MD at [facility] [place] [facility] Hemostatic Agent Posterior : Spine Lumbar [employer] 12/12/2018 [id number] / / [id number] Sponge Surgifoam Thk7mm 6x2cm Hemostatic Agent Gelatin - [id number] - [id number] Implanted:Qty: 1 on 05/02/2017 by Yosef Ruelas MD at [facility] and [facility] Hemostatic Agent Posterior : Spine Lumbar [employer] 03/28/20191971 / / [id number] Coflex Interlaminar Implant Size 8 - [id number] - [id number] Implanted:Qty: 1 on 05/02/2017 by Yosef Ruelas MD at [facility] and Med Posterior : Spine Lumbar [employer] 07/12/2020 [id number] / / [id number] Care Teams Selenium Plant Operator Relationship Specialty Start Date End Date Jovani Piedra II, MD [address] [place] [address] PCP - General Internal Medicine 04/03/17
--- OUTSIDE RECORDS SUMMARY | 2024-12-20 10:16 | XMS_ITS | Clinical Summary ---
Author Organization [employer] [facility] Address [address] [place] [address] Care Team Providers Care Veneer Jointer Offbearer Name Role Phone Jovani Piedra MD Primary Care Provider [phone] Surgical History Surgery Date Site/Laterality Comments LUMBAR FUSION PROCEDURE:LUMBAR FUSION UMBILICAL HERNIA REPAIR PROCEDURE:UMBILICAL HERNIA REPAIR SHOULDER SURGERY Right PROCEDURE:SHOULDER SURGERY LUMBAR LAMINECTOMY 05/02/2017 Posterior PROCEDURE:LUMBAR LAMINECTOMY;COMMENT:Procedure: L3, L4 DECOMPRESSION POSTERIOR LUMBAR, PLACEMENT OF COFLEX DEVICE; Surgeon: Yosef Ruelas MD; Location: [facility] MAIN OPERATING ROOM; Service: Spine; Laterality: Posterior; Medical History Medical History Date Comments Hypertension DX:Hypertension Hyperlipidemia DX:Hyperlipidemi a Johnson's esophagus DX:Johnson's esophagus GERD (gastroesophageal reflux disease) DX:GERD (gastroesophageal reflux disease) History of BPH DX:History of BP H Social History Tobacco Use Types Packs/Day Years Used Date Smoking Tobacco: Former Cigarettes Q uit: 04/29/1982 Smokeless Tobacco: Never Alcohol Use Standard Drinks/Week Comments Yes 2 (1 standard drink = 0.6 oz pur e alcohol) Sex and Gender Information Value Date Recorded Sex Assigned at Not on file Legal Sex Male 8:35 PM EST Gender Identity Not on file Sexual Orientation Not on file Obstetrics History Plan of Treatment Health Maintenance Due Date Last Done Comments DTaP,Tdap,and Td Vaccines (1 - Tdap) 1969 Pneumococcal Vaccine: 50+ Ye ars (1 of 1 - PCV) 2000 Zoster Vaccines (1 of 2) 2000 Abdominal Aortic Aneurysm (A AA) Screen 01/20/2024 Cholesterol Screening (Lipid Panel) 01/20/2024 Colorectal Cancer Screening: Colonoscopy 01/20/2024 Falls Risk Assessment 01/20/2024 Hepatitis C Screening 01/20/2024 Social Influencers of Health Screening 01/20/2024 Depression Screening 04/14/2024 COVID-19 Vaccine (1 - 2023-2 5 season) 2024 Influenza Vaccine (#1) 2024 RSV Immunization Adult Patie nts (1 - 1-dose 75+ series) 2025 HIB Vaccines Aged Out No longer eligi ble based on patient's age to complete this topic HPV Vaccines Aged Out No longer eligi ble based on patient's age to complete this topic Hepatitis A Vaccines Aged Out No long er eligible based on patient's age to complete this topic Hepatitis B Vaccines Aged Out No long er eligible based on patient's age to complete this topic IPV Vaccines Aged Out No longer eligi ble based on patient's age to complete this topic MMR Vaccines Aged Out No longer eligi ble based on patient's age to complete this topic Meningococcal ACWY Vaccine Aged Out N o longer eligible based on patient's age to complete this topic Meningococcal B Vaccine Aged Out No l onger eligible based on patient's age to complete this topic RSV Immunization Patients Un rachelle 20 months Aged Out No longer eligible b ased on patient's age to complete this topic Varicella Vaccines Aged Out No longer eligible based on patient's age to complete this topic Care Teams Veneer Jointer Offbearer Relationship Specialty Start Date End Date Jovani Piedra MD [address] [facility] [address] [place], [place] PCP - General Internal Medicine 04/03/17
== END 2024-12-20 09:08 | disposition home or self-care (01) ==
LOC: HO.10HDL 09:07
PROVIDERS: Visit Provider Internal Medicine
DX: N40.1 Benign prostatic hyperplasia with lower urinary tract symptoms (principal); R35.0 Frequency of micturition; Z12.5 Encounter for screening for malignant neoplasm of prostate
CPT/HCPCS: 36415; 84153